=== PATIENT | male | born 1975 | race Caucasian/White ===

== ENCOUNTER 2017-06-09 02:25 | Emergency (ER) | payer SELFPAY ==
[~2017-06-09] VITALS: Ht 193 cm; Wt 106.6 kg
[~2017-06-09 02:25] MED LIST: AMLO10 PO; AMOCLA875 PO; Bactrim Ds Tab1 EACH PO; CETYLOZ PO; HYDACE5 PO; NAPR500 PO; PRED20 PO; ZESTRIL40 MG PO; ZOLP10 PO
[2017-06-09] MEDS ORDERED: Percocet 5-3251 EACH PO (04:49)
== END 2017-06-09 05:02 | disposition home or self-care (01) ==
LOC: ER 02:25
DX: M76.62 Achilles tendinitis, left leg (principal); M76.61 Achilles tendinitis, right leg; F17.200 Nicotine dependence, unspecified, uncomplicated; Z79.899 Other long term (current) drug therapy
CPT/HCPCS: 73610; 99283

== ENCOUNTER 2017-08-01 22:18 | Emergency (ER) | payer OTHER ==
[~2017-08-01] VITALS: Ht 193 cm; Wt 99.8 kg
[~2017-08-01 22:18] MED LIST changes: +Percocet 5-3251 EACH PO
[2017-08-01] MEDS ORDERED: Augmentin 875-1 EACH PO (23:52)
== END 2017-08-02 00:27 | disposition home or self-care (01) ==
LOC: ER 22:18
DX: J32.8 Other chronic sinusitis (principal); I10 Essential (primary) hypertension; F17.200 Nicotine dependence, unspecified, uncomplicated
CPT/HCPCS: 70450; 99284; J1100; Q0163

== ENCOUNTER 2017-10-04 09:32 | Emergency (ER) | payer MEDICAID ==
[~2017-10-04] VITALS: Ht 193 cm; Wt 99.8 kg
[~2017-10-04 09:32] MED LIST changes: +Augmentin 875-1 EACH PO
[2017-10-04] MEDS ORDERED: CEPH500 PO ×2 (09:55→23:22)
[2017-10-04] MEDS ORDERED: Doxycycline Hy100 MG PO (23:55)
== END 2017-10-04 09:58 | disposition home or self-care (01) ==
LOC: ER 09:32
DX: H60.12 Cellulitis of left external ear (principal); I10 Essential (primary) hypertension; F17.200 Nicotine dependence, unspecified, uncomplicated
CPT/HCPCS: 99282

== ENCOUNTER 2017-10-04 23:16 | Emergency (ER) | payer MEDICAID ==
[~2017-10-04] VITALS: Ht 193 cm; Wt 102.1 kg
[~2017-10-04 23:16] MED LIST changes: +CEPH500 PO
[2017-10-04] MEDS ORDERED: CEPH500 PO (23:22)
[2017-10-04] MEDS ORDERED: Doxycycline Hy100 MG PO (23:55)
== END 2017-10-05 00:40 | disposition home or self-care (01) ==
LOC: ER 23:16
DX: H60.12 Cellulitis of left external ear (principal); Z79.2 Long term (current) use of antibiotics; Z79.899 Other long term (current) drug therapy; I10 Essential (primary) hypertension; F17.200 Nicotine dependence, unspecified, uncomplicated
CPT/HCPCS: 99283

== ENCOUNTER → 2018-08-28 | Outpatient (CLI) | payer OTHER ==
[~2018-08-28] MED LIST changes: +Doxycycline Hy100 MG PO
[2018-08-28 15:37] LABS: BASOPHILS ABSOLUTE AUTO 0.07 K/mm3 (0.00-0.23); BASOPHILS PERCENT AUTO 1 % (0-2); EOSINOPHILS ABSOLUTE AUTO 0.01 K/mm3 (0.00-0.68); EOSINOPHILS PERCENT AUTO 0 % (0-6); Hematocrit 43.3 % (37.0-53.0); Hemoglobin 15.2 g/dL (13.5-17.5); IMMATURE GRAN ABSOLUTE AUTO 0.04 K/mm3 (0.00-0.10); IMMATURE GRAN PERCENT AUTO 0 % (0-1); LYMPHOCYTES ABSOLUTE AUTO 1.74 K/mm3 (0.84-5.20); LYMPHOCYTES PERCENT AUTO 17 % (21-46); MONOCYTES ABSOLUTE AUTO 0.94 K/mm3 (0.16-1.47); MONOCYTES PERCENT AUTO 9 % (4-13); Mean Corpuscular HGB 31.3 pg (26.0-34.0); Mean Corpuscular HGB Conc 35.1 g/dL (31.5-36.5); Mean Corpuscular Volume 89 fL (80-100); Mean Platelet Volume 10.4 fL (9.1-12.4); NEUTROPHILS ABSOLUTE AUTO 7.29 K/mm3 (1.96-9.15); NEUTROPHILS PERCENT AUTO 72 % (41-73); Platelet Count 291 K/mm3 (150-400); RDW Coefficient Variation 13.4 % (11.7-14.2); RDW Standard Deviation 43.8 fL (35.1-46.3); Red Blood Cell Count 4.85 M/mm3 (4.30-5.90); White Blood Cell Count 10.09 K/mm3 (4.00-11.30)
[2018-08-28 15:50] LABS: Alanine Aminotransfer (ALT/SGP 30 U/L (12-78); Albumin, Blood 4.7 g/dL (3.4-5.0); Albumin/Globulin Ratio 1.2 (0.8-1.8); Alk Phos 74 U/L (40-126); Anion Gap 12 mmol/L (6-16); Aspartate Aminotrans (AST/SGOT 23 U/L (12-37); Bilirubin, Total 0.5 mg/dL (0.1-1.0); Blood Urea Nitrogen 16 mg/dL (8-24); CO2, Blood 26 mmol/L (21-32); Calcium, Blood 9.6 mg/dL (8.5-10.1); Chloride, Blood 106 mmol/L (98-108); Creatinine, Blood 1.14 mg/dL (0.60-1.20); Glomerular Filtration Rate >60 (60-); Glucose, Blood 124 mg/dL (70-99); Potassium, Blood 3.6 mmol/L (3.5-5.5); Sodium, Blood 144 mmol/L (136-145); Total Protein, Blood 8.7 g/dL (6.4-8.2)
== END | disposition home or self-care (01) ==
LOC: LAB EV 15:30 → LAB SHORT 15:30
PROVIDERS: Physician Assistant Surgical
DX: R17 Unspecified jaundice (principal)
CPT/HCPCS: 80053; 85025

== ENCOUNTER 2020-10-31 07:46 | Day surgery (SDC) | payer OTHER ==
[~2020-10-31] VITALS: Ht 193 cm; Wt 115.4 kg
--- NOTE | 2020-10-31 09:49 | NUR ---
10/31/20 0949 Kadie Gonzalez 0.15MG EPI ADDED TO 30CC 0.5% MARCAINE=0.5%MARCAINE WITH EPI 1:200,000
== END 2020-10-31 11:10 | disposition home or self-care (01) ==
LOC: ORSCSDS 07:46
PROVIDERS: Orthopaedic Surgery
PROC: 0SQD4ZZ Repair Left Knee Joint, Percutaneous Endoscopic Approach (ICD-10-PCS; principal; 2020-10-31 09:00)
PROC: 0SBD4ZZ Excision of Left Knee Joint, Percutaneous Endoscopic Approach (ICD-10-PCS; principal; 2020-10-31 09:00)
DX: S83.242A Other tear of medial meniscus, current injury, left knee, initial encounter (principal); M17.12 Unilateral primary osteoarthritis, left knee; M23.42 Loose body in knee, left knee; I10 Essential (primary) hypertension
CPT/HCPCS: A9270; J0171; J0690; J1100; J1885; J2250; J2405; J2704; J3010; J7120